=== PATIENT | female | born 1965 | race Caucasian/White ===

== ENCOUNTER 2016-11-12 22:23 | Emergency (ER) | payer MEDICARE, OTHER ==
[~2016-11-12] VITALS: Ht 170.2 cm; Wt 75.3 kg
[2016-11-12 22:33] VITALS: BP 142/91
[2016-11-12] MEDS ORDERED: LAMICTAL100 MG ORAL (22:39)
[2016-11-12] MEDS ORDERED: BUSPAR10 MG ORAL (22:39)
[2016-11-12] MEDS ORDERED: SEROQUEL100 MG ORAL (22:39)
[2016-11-12] MEDS ORDERED: PEPCID20 MG ORAL (22:39)
[2016-11-12] MEDS ORDERED: BUPROPION XL300 MG ORAL (22:39)
[2016-11-12] MEDS ORDERED: LITHIUM CARBON300 MG ORAL (22:39)
[2016-11-12] MEDS ORDERED: Metoclopramide 10mg/2ml Inj IVP ONE (23:00)
[2016-11-12] MEDS ORDERED: Ketorolac 30mg Inj IV ONE (23:00)
[2016-11-12] MEDS ORDERED: DiphenhydrAMINE 50mg/ml Inj IVP ONE (23:00)
[2016-11-12 23:54] LABS: APPEARANCE,URINE CLEAR; KETONES,URINE NEGATIVE (NEGATIVE); LEUKOCYTE ESTERASE ,URINE NEGATIVE (NEGATIVE); NITRITE,URINE NEGATIVE (NEGATIVE); PH,URINE 7 (4.5-8.0); PROTEIN,URINE NEGATIVE (NEGATIVE); UROBILINOGEN,URINE NORMAL MG/DL (0.0-1.0)
[2016-11-13 00:28] LABS: BACTERIA,URINE OCCASIONAL /HPF; SQUAMOUS EPITHELIAL CELL,UR OCCASIONAL /LPF (NONE/OCC); WBC,URINE 0-2 /HPF (0 - 2)
[2016-11-13] MEDS ORDERED: HYDROmorphone 1mg/ml Carpuject IVP ONE (00:30)
[2016-11-13 00:33] VITALS: BP 140/85
--- NOTE | 2016-11-13 01:00 | Emergency Room Report ---
History of Present Illness General Chief Complaint: Headache Source: Patient Present Illness HPI Patient presents with a migraine for 3 days. She's been taking Imitrex twice a day for the last 3 days. The pain became unbearable today. She usually gets care at [facility]. She decided to come here because she is tired of her wait at [facility]. She is in a pain treatment program there. She states that they regulate what prescriptions she can have however, when she is in the ED they do not limit the analgesics that she is able to get. She denies any aura but before the headache started, she had a strange feeling in her head. The pain is behind her right eye and severe. Radiates somewhat towards the right side of the back of her head. She states sometimes she needs to have DHE, but has to be off of imitrex for 24 hours. The patient denies any fevers. She does have nausea. She denies any vomiting. There is no weakness. She does feel he dehydrated. She has history of bipolar disorder is on lithium. The dose of lithium was recently decreased because of suppression of her parathyroid. She states that her calcium is extremely low recently. On most recent check - calcium was normal. She does take lithium 300 mg a day as opposed to 900. She denies any suicidal or homicidal ideation. She has chronic back problems with pain there. This pain is stable. Post uterine ablation. Post tubal ligation. Allergies: Coded Allergies: AMOXICILLIN (Verified Allergy, Unknown, 11/12/16) DIVALPROEX SODIUM (Verified Allergy, Unknown, 11/12/16) LATEX (Verified Allergy, Unknown, 11/12/16) LEVETIRACETAM (Verified Allergy, Unknown, 11/12/16) PHENOTHIAZINES (Verified Allergy, Unknown, 11/12/16) RISPERIDONE (Verified Allergy, Unknown, 11/12/16) Patient History Past Medical History: see triage record Past Surgical History: T+A, appy, other - tubal ligation and ablation, spinal fusion Social History: Denies: smoking Social History Narrative at home Last Menstrual Period: unk Now: No Reviewed Nursing Documentation: PMH: Agreed, PSxH: Agreed Nursing Documentation-PMH Past Medical History: No History, Except For Hx Asthma: Yes Hx Gastrointestinal Problems: Yes - Acid reflux History Of Psychiatric Problem: Yes - Bipolar, PTSD Review of Systems All Other Systems: negative except mentioned in HPI Physical Exam Vital Signs Date Time Temp Pulse Resp B/P Pulse Ox O2 Delivery O2 Flow Rate FiO2 11/12/16 22:27 98.1 73 20 142/91 98 Room Air Sp02 EP Interpretation: reviewed, normal General Appearance: well appearing, no apparent distress, GCS 15 Head: normocephalic Eyes: bilateral eye PERRL, bilateral eye normal inspection ENT: moist mucus membranes Neck: supple Respiratory: lungs clear, normal breath sounds Cardiovascular #1: regular rate, rhythm Cardiovascular #2: 2+ radial (R) Gastrointestinal: normal inspection, normal bowel sounds, non tender, no mass, non-distended Musculoskeletal: gait/station normal, normal range of motion, other - paraspinous spasm Neurologic: alert, oriented x3, chief growth officer III-XII nml as tested, motor strength/tone normal, SLR negative, sensory intact, cerebellar normal, normal gait, speech normal Psychiatric: mood/affect normal Skin: normal inspection, warm/dry Medical Decision Making Diagnostic Impression: Primary Impression: Headache Qualified Codes: R51 - Headache ER Course Patient presents with "migraine". Ddx: migraine, tension, cluster. No red flag symptoms or findings. Will treat with reglan, benadryl and toradol. No imaging studies indicated. No evidence of infection. Pain better with reglan and toradol, but persists. Dilaudid added. Patient improved. Patient stable for outpatient observation and treatment. Labs Test 11/12/16 23:08 Urine Color Pale yellow Urine Appearance Clear Urine pH 7 (4.5-8.0) Urine Specific [place] 1.005 (1.005-1.035) Urine Protein Negative (NEGATIVE) Urine Glucose (UA) Negative (NEGATIVE) Urine Ketones Negative (NEGATIVE) Urine Occult Blood 2+ (NEGATIVE) Urine Nitrite Negative (NEGATIVE) Urine Bilirubin Negative (NEGATIVE) Urine Urobilinogen Normal MG/DL (0.0-1.0) Urine Leukocyte Esterase Negative (NEGATIVE) Urine RBC 2-4 /HPF (0 - 2) Urine WBC 0-2 /HPF (0 - 2) Urine Squamous Epithelial Cells Occasional /LPF Urine Bacteria Occasional /HPF (NONE) Urine HCG, Qualitative Negative Urine Opiates Screen Negative (NEGATIVE) Urine Barbiturates Screen Negative (NEGATIVE) Phencyclidine (PCP) Screen Negative (NEGATIVE) Urine Amphetamines Screen Negative (NEGATIVE) Urine Benzodiazepines Screen Negative (NEGATIVE) Urine Cocaine Screen Negative (NEGATIVE) Urine Marijuana (THC) Screen Positive (NEGATIVE) Last Vital Signs Date Time Temp Pulse Resp B/P Pulse Ox O2 Delivery O2 Flow Rate FiO2 11/13/16 01:10 97.9 81 18 148/87 99 Room Air Status: improved Disposition: HOME, SELF-CARE Condition: Improved Referrals: NON PHYSICIAN (PCP) Ted Guajardo M.D. Nov 13, 2016 01:00
[2016-11-13 01:10] VITALS: BP 148/87
== END 2016-11-13 01:10 | disposition home or self-care (01) ==
LOC: EMR 22:45
DX: R51 Headache (principal); R11.0 Nausea; Z88.8 Allergy status to other drugs, medicaments and biological substances; Z90.89 Acquired absence of other organs; Z91.040 Latex allergy status; K21.9 Gastro-esophageal reflux disease without esophagitis; Z86.59 Personal history of other mental and behavioral disorders
CPT/HCPCS: 80300; 81003; 81025; 96360; 96374; 96375; 99284; J1170; J1200; J1885; J2765